=== PATIENT | male | born 1995 | race Caucasian/White ===

== ENCOUNTER 2016-06-12 19:47 | Emergency (ER) | payer BC, OTHER ==
[~2016-06-12] VITALS: Ht 185.4 cm; Wt 99.0 kg
[~2016-06-12 19:47] MED LIST: AMOX875 PO; ANTISOL30 EACH EAR
[2016-06-12 19:49] VITALS: BP 137/65; PULSE 70; RESP 16; TEMP 98.7; O2SAT 100
--- NOTE | 2016-06-12 20:02 | PD ---
Physical Exam Time Seen by Provider: 19:56 Narrative 20yo M w c/o thinking he's having seizures for the past few months. C/o shakey hands, mind going blank, not being able to speak during events. Happening 2-8 times per day. Lip smacking at night. Was awake, but unresponsive for about 1 minute after waking up yesterday; was completely pale and confused. Does not recall events after they occur. Reports ZAPIEN yesterday before event. Denies vomiting. Hx of hitting head about 3 months ago w/o LOC, but states he hit his head really hard. VS reviewed. Patient seen in triage. Awaiting bed placement. Data Data Last Documented VS Vital Signs Date Time Temp Pulse Resp B/P Pulse Ox O2 Delivery O2 Flow Rate FiO2 06/12/16 19:49 98.7 70 16 137/65 100 Room Air MDM Supervised Visit with OLIVER: Mindy Agosto June 12, 2016 20:02
--- NOTE | 2016-06-12 22:29 | PD ---
HPI Chief Complaint: Medical Clearance Time Seen by Provider: 22:11 Travel History International Travel<30 days: No Contact w/Intl Traveler<30days: No Traveled to known affect area: No History of Present Illness HPI 20-year-old male here with girlfriend for evaluation of possible seizures. 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 He denies losing consciousness at that time. Since then he has been having episodes of staring off into the distance. Girlfriend tells me that he had an episode last night where his face became pale, he complained of a headache, proceeded to stay off into the distance, and had left upper extremity shaking. This lasted for about 15-20 seconds. No history of seizure disorder. No family history of seizures. No fevers or recent illness. No paresthesias or motor deficits. He drinks alcohol occasionally. No illicit drug use. PFSH Past Medical History Diminished Hearing: No Social History Alcohol Use: No Tobacco Use: No Substance Use: No Allergies-Medications (Allergen,Severity, Reaction): Coded Allergies: No Known Allergies (Unverified , 06/12/16) Reported Meds & Prescriptions Reported Meds & Active Scripts Active No Active Prescriptions or Reported Medications Review of Systems Except as stated in HPI: all other systems reviewed are Neg Physical Exam Narrative GENERAL: Well-developed, well-nourished, awake, alert, no acute distress. SKIN: Focused skin assessment warm/dry. No rash. No pallor. HEAD: Atraumatic. Normocephalic. EYES: Pupils equal, round, 3 mm, reactive to light. EOMI. No scleral icterus. No injection or drainage. ENT: Mucous membranes pink and moist. NECK: Trachea midline. No JVD. CARDIOVASCULAR: Regular rate and rhythm. RESPIRATORY: No accessory muscle use. Clear to auscultation. Breath sounds equal bilaterally. GASTROINTESTINAL: Abdomen soft, non-tender, nondistended. MUSCULOSKELETAL: No obvious deformities. No clubbing. No cyanosis. No edema. NEUROLOGICAL: Awake and alert. No obvious cranial nerve deficits. Motor grossly within normal limits. Normal speech. No focal deficits. PSYCHIATRIC: Appropriate mood and affect; insight and judgment normal. Data Data Last Documented VS Vital Signs Date Time Temp Pulse Resp B/P Pulse Ox O2 Delivery O2 Flow Rate FiO2 06/12/16 19:49 98.7 70 16 137/65 100 Room Air Orders Complete Blood Count With Diff (06/12/16 22:20) Drug Screen, Random Urine (06/12/16 22:20) Blood Glucose (06/12/16 22:20) Ecg Monitoring (06/12/16 22:20) Iv Access Insert/Monitor (06/12/16 22:20) Oximetry (06/12/16 22:20) Comprehensive Metabolic Panel (06/12/16 22:20) Sodium Chloride 0.9% Flush (Ns Flush) (06/12/16 22:30) Urinalysis - C+S If Indicated (06/12/16 22:20) Ct Brain W/O Iv Contrast(Rout) (06/12/16 ) Labs Laboratory Tests Test 06/12/16 06/12/16 22:40 23:14 White Blood Count 7.2 TH/MM3 Red Blood Count 4.97 MIL/MM3 Hemoglobin 11.8 GM/DL Hematocrit 37.6 % Mean Corpuscular Volume 75.7 FL Mean Corpuscular Hemoglobin 23.8 PG Mean Corpuscular Hemoglobin 31.5 % Concent Red Cell Distribution Width 16.3 % Platelet Count 210 TH/MM3 Mean Platelet Volume 10.2 FL Neutrophils (%) (Auto) 51.4 % Lymphocytes (%) (Auto) 34.9 % Monocytes (%) (Auto) 12.3 % Eosinophils (%) (Auto) 0.5 % Basophils (%) (Auto) 0.9 % Neutrophils # (Auto) 3.7 TH/MM3 Lymphocytes # (Auto) 2.5 TH/MM3 Monocytes # (Auto) 0.9 TH/MM3 Eosinophils # (Auto) 0.0 TH/MM3 Basophils # (Auto) 0.1 TH/MM3 CBC Comment AUTO DIFF Sodium Level 139 MEQ/L Potassium Level 4.0 MEQ/L Chloride Level 104 MEQ/L Carbon Dioxide Level 27.0 MEQ/L Anion Gap 8 MEQ/L Blood Urea Nitrogen 14 MG/DL Creatinine 1.01 MG/DL Estimat Glomerular Filtration 92 ML/MIN Rate Random Glucose 84 MG/DL Calcium Level 8.7 MG/DL Total Bilirubin 0.4 MG/DL Aspartate Amino Transf 22 U/L (AST/SGOT) Alanine Aminotransferase 28 U/L (ALT/SGPT) Alkaline Phosphatase 60 U/L Total Protein 8.3 GM/DL Albumin 4.3 GM/DL Urine Color LIGHT-YELLOW Urine Turbidity CLEAR Urine pH 5.5 Urine Specific [place] 1.005 Urine Protein NEG mg/dL Urine Glucose (UA) NEG mg/dL Urine Ketones NEG mg/dL Urine Occult Blood NEG Urine Nitrite NEG Urine Bilirubin NEG Urine Urobilinogen LESS THAN 2.0 MG/DL Urine Leukocyte Esterase NEG Urine Mucus FEW /lpf Microscopic Urinalysis Comment CULT NOT INDICATED Urine Opiates Screen NEG Urine Barbiturates Screen NEG Urine Amphetamines Screen NEG Urine Benzodiazepines Screen NEG Urine Cocaine Screen NEG Urine Cannabinoids Screen NEG MDM Medical Decision Making Medical Screen Exam Complete: Yes Emergency Medical Condition: Yes Differential Diagnosis Seizure, Absence Seizures, Intracranial Abnormality, Metabolic Abnormality Narrative Course Vital signs show heart rate 70, blood pressure 137/65, pulse ox 100% on room air , oral temp of 98.7F. CBC is remarkable for hemoglobin 11.8, hematocrit 37.6, MCV 75.7. The patient has been told that he is slightly anemic in the past. CMP is unremarkable. Urine drug screen is negative for all drugs tested. UA is unremarkable. CT head: Normal exam. Case discussed with on-call neurologist Dr. Marte shortly after the patient arrived to the emergency department. He agrees with above workup, and states that if workup was negative, that this is not an acute issue, and the patient can follow-up in his office as an outpatient. The patient and the patient's girlfriend were made aware of all findings. He is resting comfortably. He is awake, alert, and oriented. He is stable for discharge home with outpatient follow-up. I told him he should not be driving or operating heavy machinery until cleared by neurology. He verbalizes understanding with this. Diagnosis Primary Impression: Seizure-like activity Referrals: Reginaldo Marte MD 3 days Primary Care Physician 3 days Additional Instructions: Follow-up with your primary care physician this week as scheduled. Follow-up with neurologist Dr. Marte or a neurologist of your choice this week. Return to the emergency department for worsening symptoms or any other concerns. Scripts No Active Prescriptions or Reported Meds Disposition: 01 DISCHARGE HOME Condition: Stable Isauro Melendez MD June 12, 2016 22:29
[2016-06-12] MEDS ORDERED: SODIUM CHLORIDE 0.9% FLUSH 10 ML FLUSH IVF PRN (22:30)
[2016-06-12 22:45] LABS: AUTOMATED NEUTROPHIL # 3.7 TH/MM3 (1.8-7.7); BASOPHIL # 0.1 TH/MM3 (0-0.2); BASOPHIL % 0.9 % (0.0-2.0); EOSINOPHIL % 0.5 % (0.0-4.0); HEMATOCRIT 37.6 % (39.0-51.0); LYMPH % 34.9 % (9.0-44.0); LYMPHOCYTE # 2.5 TH/MM3 (1.0-4.8); MEAN CELL VOLUME 75.7 FL (80.0-100.0); MEAN CORPUSCULAR HEMOGLOBIN 23.8 PG (27.0-34.0); MEAN CORPUSCULAR HGB CONC 31.5 % (32.0-36.0); MONO % 12.3 % (0.0-8.0); NEUT % 51.4 % (16.0-70.0); PLATELET COUNT 210 TH/MM3 (150-450); RED BLOOD COUNT 4.97 MIL/MM3 (4.50-5.90); RED CELL DISTRIBUTION WIDTH 16.3 % (11.6-17.2); WHITE BLOOD COUNT 7.2 TH/MM3 (4.0-11.0)
[2016-06-12 22:51] LABS: HEMO FLAGS AUTO DIFF
--- NOTE | 2016-06-12 23:05 | RADRPT ---
EXAM DATE/TIME: 06/12/2016 22:50 [facility] COMPARISON: No previous studies available for comparison. INDICATIONS : Altered mental status. Possible seizures. RADIATION DOSE: 39.52 CTDIvol (mGy) MEDICAL HISTORY : None SURGICAL HISTORY : None. ENCOUNTER: Initial ACUITY: 3 days PAIN SCALE: 0/10 LOCATION: cranial TECHNIQUE: Multiple contiguous axial images were obtained of the head. Using automated exposure control and adj ustment of the mA and/or kV according to patient size, radiation dose was kept as low as reasonably a chievable to obtain optimal diagnostic quality images. FINDINGS: CEREBRUM: The ventricles are normal for age. No evidence of midline shift, mass lesion, hemorrhage or acute in farction. No extra-axial fluid collections are seen. POSTERIOR FOSSA: The cerebellum and brainstem are intact. The 4th ventricle is midline. The cerebellopontine angle i s unremarkable. EXTRACRANIAL: The visualized portion of the orbits is intact. SKULL: The calvaria is intact. No evidence of skull fracture. CONCLUSION: Normal examination. Robb Damico Jr., MD on June 12, 2016 at 23:03 Board Certified Radiologist. This report was verified electronically.
[2016-06-12 23:18] LABS: ANION GAP 8 MEQ/L (5-15); AST (GOT) 22 U/L (15-37); BLOOD UREA NITROGEN 14 MG/DL (7-18); CHLORIDE 104 MEQ/L (98-107); GLOMERULAR FILTRATION RATE 92 ML/MIN (>89); SODIUM (NA) 139 MEQ/L (136-145)
[2016-06-12 23:22] LABS: ALKALINE PHOSPHATASE 60 U/L (45-117); ALT (GPT) 28 U/L (12-78); TOTAL BILIRUBIN ADULT 0.4 MG/DL (0.2-1.0)
[2016-06-12 23:22] LABS: BLOOD, URINE NEG (NEG); GLUCOSE,URINE NEG (NEG); KETONE, URINE NEG (NEG); MUCUS URINE FEW /lpf (OCC); NITRITE,URINE NEG (NEG); PH, URINE 5.5 (5.0-8.5); URINE COLOR LIGHT-YELLOW (YELLW/STRAW)
[2016-06-12 23:23] LABS: COMMENT (UR) CULT NOT INDICATED; CULTURE IF INDICATED CULT NOT INDICATED
[2016-06-12 23:28] LABS: AMPHETAMINE, URINE NEG (NEG); BARBITURATES, URINE NEG (NEG); COCAINE, URINE NEG (NEG)
[2016-06-12 23:49] LABS: SCAN/DIFF AUTO DIFF CONFIRMED
== END 2016-06-13 01:00 | disposition home or self-care (01) ==
LOC: NEPD 19:47
DX: R56.9 Unspecified convulsions (principal); R51 Headache
CPT/HCPCS: 70450; 80053; 80307; 81001; 85025

== ENCOUNTER 2016-06-15 13:06 | Emergency (ER) | payer BC ==
[~2016-06-15] VITALS: Ht 188 cm; Wt 118.0 kg
[2016-06-15 13:08] VITALS: BP 133/60; PULSE 74; RESP 20; TEMP 98.7; O2SAT 98
--- NOTE | 2016-06-15 13:22 | PD ---
Physical Exam Date Seen by Provider: June 15, 2016 Time Seen by Provider: 13:15 Narrative Pt states he needs to get "checked out" because he's having seizures. Pt was seen Sunday and discharged. He states that they are becoming more frequent and states he's had hundred's. He states his body "tunes out". He is aware of his surroundings and he can make himself walk it out. His girlfriend states he does a lip smacking thing and appears pale and disoriented, he stares blankly. No incontinence. When these episodes happen he is standing up, he never "falls out ". VSS, awaiting bed placement. Data Data Last Documented VS Vital Signs Date Time Temp Pulse Resp B/P Pulse Ox O2 Delivery O2 Flow Rate FiO2 06/15/16 13:08 98.7 74 20 133/60 98 Room Air MDM Supervised Visit with OLIVER: No Scripts No Active Prescriptions or Reported Meds Ranjana Foote June 15, 2016 13:22
--- NOTE | 2016-06-15 14:39 | PD ---
HPI Chief Complaint: Seizure Time Seen by Provider: 14:38 Travel History International Travel<30 days: No Contact w/Intl Traveler<30days: No Traveled to known affect area: No History of Present Illness HPI 20 year old male presents to the ED for evaluation of a 3 month history of "spacing out." Episodes happen randomly, resolve after 15-20 seconds. Patient describes them as "I just go blank and then I snap out of it." The patients girlfriend is at bedside and states that she has witnessed the patients episodes. She states that he does not lose postural tone, sometimes smacks his lips, occasionally has tremors of bilateral hands. Patient states that he hit his head on the grab bar of a pickup truck approximately 3 months ago. He did not lose consciousness at the time. He is unsure if symptoms began prior to this event. He denies fever, chills, chest pain, palpitations, abdominal pain, nausea, vomiting, dysuria, numbness, tingling, weakness, limitations to range of motion of the extremities. Patient was evaluated here on 06/13, had a CT at the time and was referred to Dr. Marte on an outpatient basis. The patient's girlfriend states that she has to drive the patient to work every day and "can' t wait" until July 13, when the patient has an appointment. PFSH Past Medical History Diminished Hearing: No Seizures: Yes Past Surgical History Abdominal Surgery: Yes (gastric bypass) Social History Alcohol Use: Yes Tobacco Use: Yes Substance Use: No Allergies-Medications (Allergen,Severity, Reaction): Coded Allergies: No Known Allergies (Unverified , 06/15/16) Reported Meds & Prescriptions Reported Meds & Active Scripts Active Keppra (Levetiracetam) 500 Mg Tab 500 Mg PO BID Review of Systems Except as stated in HPI: all other systems reviewed are Neg Physical Exam Narrative GENERAL: Well-nourished, well-developed pleasant white male in no acute distress. SKIN: Focused skin assessment warm/dry. No rashes. HEAD: Normocephalic. EYES: No scleral icterus. No injection or drainage. NECK: Supple, trachea midline. No JVD or lymphadenopathy. CARDIOVASCULAR: Regular rate and rhythm without murmurs, gallops, or rubs. 2+ DP and radial pulses bilaterally. RESPIRATORY: Breath sounds clear and equal bilaterally. No accessory muscle use. GASTROINTESTINAL: Abdomen soft, non-tender, nondistended. Active bowel sounds. MUSCULOSKELETAL: No cyanosis, or edema. Patient is ambulatory and moves extremities spontaneously. NEUROLOGICAL: Awake and alert. Cranial nerves II through XII intact. Motor and sensory grossly within normal limits. Five out of 5 muscle strength in all muscle groups. Normal speech. No difficulties with finger to nose testing. No pronator drift. BACK: Nontender without obvious deformity. No CVA tenderness. Data Data Last Documented VS Vital Signs Date Time Temp Pulse Resp B/P Pulse Ox O2 Delivery O2 Flow Rate FiO2 06/15/16 16:00 57 17 125/58 99 Room Air 06/15/16 13:08 98.7 Orders Complete Blood Count With Diff (06/15/16 14:59) Basic Metabolic Panel (Bmp) (06/15/16 14:59) Urinalysis - C+S If Indicated (06/15/16 14:59) Drug Screen, Random Urine (06/15/16 14:59) Levetiracetam 1000 Mg Inj (Keppra 1000 M (06/15/16 15:15) Labs Laboratory Tests Test 06/15/16 15:00 White Blood Count 5.3 TH/MM3 Red Blood Count 4.78 MIL/MM3 Hemoglobin 11.3 GM/DL Hematocrit 36.2 % Mean Corpuscular Volume 75.7 FL Mean Corpuscular Hemoglobin 23.7 PG Mean Corpuscular Hemoglobin 31.3 % Concent Red Cell Distribution Width 16.7 % Platelet Count 200 TH/MM3 Mean Platelet Volume 10.5 FL Neutrophils (%) (Auto) 53.8 % Lymphocytes (%) (Auto) 33.7 % Monocytes (%) (Auto) 11.1 % Eosinophils (%) (Auto) 0.7 % Basophils (%) (Auto) 0.7 % Neutrophils # (Auto) 2.9 TH/MM3 Lymphocytes # (Auto) 1.8 TH/MM3 Monocytes # (Auto) 0.6 TH/MM3 Eosinophils # (Auto) 0.0 TH/MM3 Basophils # (Auto) 0.0 TH/MM3 CBC Comment AUTO DIFF Differential Comment AUTO DIFF CONFIRMED Platelet Estimate NORMAL Platelet Morphology Comment ENLARGED Urine Color YELLOW Urine Turbidity CLEAR Urine pH 5.5 Urine Specific [place] 1.010 Urine Protein NEG mg/dL Urine Glucose (UA) NEG mg/dL Urine Ketones NEG mg/dL Urine Occult Blood NEG Urine Nitrite NEG Urine Bilirubin NEG Urine Urobilinogen LESS THAN 2.0 MG/DL Urine Leukocyte Esterase NEG Urine WBC LESS THAN 1 /hpf Microscopic Urinalysis Comment CULT NOT INDICATED Sodium Level 139 MEQ/L Potassium Level 4.0 MEQ/L Chloride Level 103 MEQ/L Carbon Dioxide Level 29.5 MEQ/L Anion Gap 7 MEQ/L Blood Urea Nitrogen 14 MG/DL Creatinine 0.87 MG/DL Estimat Glomerular Filtration 110 ML/MIN Rate Random Glucose 84 MG/DL Calcium Level 8.8 MG/DL Urine Opiates Screen NEG Urine Barbiturates Screen NEG Urine Amphetamines Screen NEG Urine Benzodiazepines Screen NEG Urine Cocaine Screen NEG Urine Cannabinoids Screen NEG MDM Medical Decision Making Medical Screen Exam Complete: Yes Emergency Medical Condition: Yes Medical Record Reviewed: Yes Differential Diagnosis Absence seizure versus psychogenic seizure versus electrolyte abnormality versus Narrative Course 20 year old male presents to the ED for evaluation of a 3 month history of "spacing out." Episodes happen randomly, resolve after 15-20 seconds. Patient describes them as "I just go blank and then I snap out of it." The patients girlfriend is at bedside and states that she has witnessed the patients episodes. She states that he does not lose postural tone, sometimes smacks his lips, occasionally has tremors of bilateral hands. Patient states that he hit his head on the grab bar of a pickup truck approximately 3 months ago, denies LOC, is unsure if symptoms began prior to this event. On presentation he denies fever, chills, chest pain, palpitations, abdominal pain, nausea, vomiting , dysuria, numbness, tingling, weakness, limitations to range of motion of the extremities. Patient was evaluated here on 06/13, had a CT at the time and was referred to Dr. Marte on an outpatient basis. The patient's girlfriend states that she has to drive the patient to work every day and "can't wait" until July 13, when the patient has an appointment. Vitals reviewed. Physical exam reveals no focal neural deficit. CBC with Hgb 11.3, similar to previous. Lab work otherwise unremarkable. I reviewed the patient's medical record. Discussed case with Dr. Hughes who recommends initiating Keppra. Patient was administered 1 g IV in the ED, prescribed 500 mg twice a day 30 days. He is instructed take medication as prescribed, continue to avoid driving or operating heavy equipment, follow-up with the neurologist as planned. Patient and his girlfriend indicated understanding of instructions and are agreeable to the care plan. Patient is stable and discharged home. Diagnosis Primary Impression: Seizure-like activity Referrals: Reginaldo Marte MD Patient Instructions: General Instructions, New-Onset Seizure in Adults (ED) Additional Instructions: Rest, hydrate. Begin Keppra 500 mg twice a day tomorrow. Follow-up with Dr. Marte as discussed. No driving or using heavy machinery until cleared by neurology. Return to the ED for any urgent or emergent medical condition. Med/Other Pt SpecificInfo: Prescription(s) given Scripts Levetiracetam (Keppra)500 Mg [id number] Mg PO BID #60 TAB Ref 0 Prov:Lashanda Hughes MD 06/15/16 Disposition: 01 DISCHARGE HOME Condition: Stable Joanna Victor June 15, 2016 14:39
[2016-06-15] MEDS ORDERED: levETIRAcetam 1000 MG INJ 100 ML IV ONE (15:15)
[2016-06-15 15:40] LABS: BLOOD, URINE NEG (NEG); GLUCOSE,URINE NEG (NEG); KETONE, URINE NEG (NEG); NITRITE,URINE NEG (NEG); PH, URINE 5.5 (5.0-8.5); URINE COLOR YELLOW (YELLW/STRAW)
[2016-06-15 15:42] LABS: AUTOMATED NEUTROPHIL # 2.9 TH/MM3 (1.8-7.7); BASOPHIL % 0.7 % (0.0-2.0); COMMENT (UR) CULT NOT INDICATED; CULTURE IF INDICATED CULT NOT INDICATED; EOSINOPHIL % 0.7 % (0.0-4.0); HEMATOCRIT 36.2 % (39.0-51.0); LYMPH % 33.7 % (9.0-44.0); LYMPHOCYTE # 1.8 TH/MM3 (1.0-4.8); MEAN CELL VOLUME 75.7 FL (80.0-100.0); MEAN CORPUSCULAR HEMOGLOBIN 23.7 PG (27.0-34.0); MEAN CORPUSCULAR HGB CONC 31.3 % (32.0-36.0); MONO % 11.1 % (0.0-8.0); NEUT % 53.8 % (16.0-70.0); PLATELET COUNT 200 TH/MM3 (150-450); RED BLOOD COUNT 4.78 MIL/MM3 (4.50-5.90); RED CELL DISTRIBUTION WIDTH 16.7 % (11.6-17.2); WHITE BLOOD COUNT 5.3 TH/MM3 (4.0-11.0)
[2016-06-15 15:45] LABS: HEMO FLAGS AUTO DIFF
[2016-06-15 15:49] LABS: AMPHETAMINE, URINE NEG (NEG); BARBITURATES, URINE NEG (NEG); COCAINE, URINE NEG (NEG)
[2016-06-15 16:00] VITALS: BP 125/58; PULSE 57; RESP 17; O2SAT 99
[2016-06-15 16:06] LABS: BICARBONATE 29.5 MEQ/L (21.0-32.0)
[2016-06-15] MEDS ORDERED: LEVE500 PO (16:12)
[2016-06-15 16:34] LABS: PLATELET ESTIMATE SMEAR NORMAL (NORMAL); PLATELET MORPHOLOGY ENLARGED (NORMAL); SCAN/DIFF AUTO DIFF CONFIRMED
--- NOTE | 2016-06-15 17:13 | PD ---
Data Data Last Documented VS Vital Signs Date Time Temp Pulse Resp B/P Pulse Ox O2 Delivery O2 Flow Rate FiO2 06/15/16 16:00 57 17 125/58 99 Room Air 06/15/16 13:08 98.7 Orders Complete Blood Count With Diff (06/15/16 14:59) Basic Metabolic Panel (Bmp) (06/15/16 14:59) Urinalysis - C+S If Indicated (06/15/16 14:59) Drug Screen, Random Urine (06/15/16 14:59) Levetiracetam 1000 Mg Inj (Keppra 1000 M (06/15/16 15:15) Labs Laboratory Tests Test 06/15/16 15:00 White Blood Count 5.3 TH/MM3 Red Blood Count 4.78 MIL/MM3 Hemoglobin 11.3 GM/DL Hematocrit 36.2 % Mean Corpuscular Volume 75.7 FL Mean Corpuscular Hemoglobin 23.7 PG Mean Corpuscular Hemoglobin 31.3 % Concent Red Cell Distribution Width 16.7 % Platelet Count 200 TH/MM3 Mean Platelet Volume 10.5 FL Neutrophils (%) (Auto) 53.8 % Lymphocytes (%) (Auto) 33.7 % Monocytes (%) (Auto) 11.1 % Eosinophils (%) (Auto) 0.7 % Basophils (%) (Auto) 0.7 % Neutrophils # (Auto) 2.9 TH/MM3 Lymphocytes # (Auto) 1.8 TH/MM3 Monocytes # (Auto) 0.6 TH/MM3 Eosinophils # (Auto) 0.0 TH/MM3 Basophils # (Auto) 0.0 TH/MM3 CBC Comment AUTO DIFF Differential Comment AUTO DIFF CONFIRMED Platelet Estimate NORMAL Platelet Morphology Comment ENLARGED Urine Color YELLOW Urine Turbidity CLEAR Urine pH 5.5 Urine Specific [place] 1.010 Urine Protein NEG mg/dL Urine Glucose (UA) NEG mg/dL Urine Ketones NEG mg/dL Urine Occult Blood NEG Urine Nitrite NEG Urine Bilirubin NEG Urine Urobilinogen LESS THAN 2.0 MG/DL Urine Leukocyte Esterase NEG Urine WBC LESS THAN 1 /hpf Microscopic Urinalysis Comment CULT NOT INDICATED Sodium Level 139 MEQ/L Potassium Level 4.0 MEQ/L Chloride Level 103 MEQ/L Carbon Dioxide Level 29.5 MEQ/L Anion Gap 7 MEQ/L Blood Urea Nitrogen 14 MG/DL Creatinine 0.87 MG/DL Estimat Glomerular Filtration 110 ML/MIN Rate Random Glucose 84 MG/DL Calcium Level 8.8 MG/DL Urine Opiates Screen NEG Urine Barbiturates Screen NEG Urine Amphetamines Screen NEG Urine Benzodiazepines Screen NEG Urine Cocaine Screen NEG Urine Cannabinoids Screen NEG MDM Supervised Visit with OLIVER: Yes Narrative Course The history, exam, and medical decision-making in the associated midlevel provider note were completed with my assistance. I reviewed and agree with the findings presented. I attest that I had a [id number] encounter with the patient on the same day, and personally performed and documented my assessment and findings in the medical record. *My assessment and Findings: This is a 20-year-old male who presents to the emergency department having increasing episodes of staring off into space concerning for Seizures. He Was Seen Here in the Emergency Department 3 Days Ago and Had Labs and a CT Scan Which Were Reassuring and Referred to Neurology As an Outpatient. He Has No Appointment Scheduled but His Girlfriend Was Concerned As His Symptoms Are Increasing. He Has a Normal Neurologic Exam and Reassuring Blood Work. I Think It's Reasonable to Try the Patient on Keppra Empirically until He Follows up with His Neurologist. I Advised Him Again Not to Drive until He's Been Completely Evaluated by neurology. Diagnosis Primary Impression: Seizure-like activity Referrals: Reginaldo Marte MD Patient Instructions: General Instructions, Levetiracetam (By mouth), New- Onset Seizure in Adults (ED) Departure Forms: Tests/Procedures Additional Instruction: Rest, hydrate. Begin Keppra 500 mg twice a day tomorrow. Follow-up with Dr. Marte as discussed. No driving or using heavy machinery until cleared by neurology. Return to the ED for any urgent or emergent medical condition. Scripts Levetiracetam (Keppra)500 Mg [id number] Mg PO BID #60 TAB Ref 0 Prov:Lashanda Hughes MD 06/15/16 Disposition: 01 DISCHARGE HOME Condition: Stable Lashanda Hughes MD June 15, 2016 17:13
== END 2016-06-15 17:26 | disposition home or self-care (01) ==
LOC: NEPC 13:06
DX: R56.9 Unspecified convulsions (principal); R25.1 Tremor, unspecified; Z72.0 Tobacco use
CPT/HCPCS: 80048; 80307; 81001; 85025; 96365; 99284; J1953

== ENCOUNTER 2016-10-14 15:45 | Emergency (ER) | payer BC ==
[~2016-10-14] VITALS: Ht 190.5 cm; Wt 120.0 kg
[~2016-10-14 15:45] MED LIST changes: -AMOX875 PO; -ANTISOL30 EACH EAR; +LEVE500 PO
[2016-10-14 15:56] VITALS: BP 139/63; PULSE 83; RESP 23; TEMP 98.7; O2SAT 99
[2016-10-14 16:10] VITALS: BP 139/63; PULSE 72; RESP 20; O2SAT 100
[2016-10-14] MEDS ORDERED: TETANUS/DIPHTHERIA TOXOID ADULT 0.5 ML VIAL IM ONE (16:15)
[2016-10-14] MEDS ORDERED: SODIUM CHLORIDE 0.9% FLUSH 10 ML FLUSH IVF PRN (16:15)
--- NOTE | 2016-10-14 16:18 | PD ---
HPI Chief Complaint: Seizure Time Seen by Provider: 16:02 Travel History International Travel<30 days: No Contact w/Intl Traveler<30days: No Traveled to known affect area: No History of Present Illness HPI Patient is a 21-year-old male presenting to emergency evaluation after having seizure-like activity at home. Patient states that he got up from the couch and walked to the bedroom and the next thing he remembers is when EMS was talking to him. Friend is at bedside and states that he appeared to have seizure-like activity for 2-3 minutes. She states that he was foaming at the mouth and shaking. Patient hit his head on a bookshelf, he doesn't remember doing this. He states that he was taken off of Keppra by his doctor 2 weeks ago. He is currently followed by Dr. Ariel Harrell. He states while he was on the Keppra he was having seizures every few days. He denies any illicit drug use, he states he drank alcohol last night. He has no other complaints at this time. No headache no dizziness no chest pain or shortness of breath or nausea. PFSH Past Medical History Anemia: Yes Diminished Hearing: No Seizures: Yes Tetanus Vaccination: Unknown ?: Not Past Surgical History Abdominal Surgery: Yes (gastric bypass) Social History Alcohol Use: Yes (weekly) Tobacco Use: No Substance Use: No Allergies-Medications (Allergen,Severity, Reaction): Coded Allergies: No Known Allergies (Unverified , 10/14/16) Reported Meds & Prescriptions Reported Meds & Active Scripts Active Keppra (Levetiracetam) 500 Mg Tab 500 Mg PO BID Review of Systems Except as stated in HPI: all other systems reviewed are Neg Skin: Positive Other (laceration) Neurologic: Positive: Seizures Physical Exam Narrative GENERAL: Well-developed, well-nourished, alert male. Resting in no acute distress. SKIN: Warm and dry. 2 cm laceration to the midforehead. HEAD: Atraumatic. Normocephalic. EYES: Pupils equal and round. No scleral icterus. No injection or drainage. ENT: No nasal bleeding or discharge. Mucous membranes pink and moist. NECK: Trachea midline. No JVD. CARDIOVASCULAR: Regular rate and rhythm. RESPIRATORY: No accessory muscle use. Clear to auscultation. Breath sounds equal bilaterally. GASTROINTESTINAL: Abdomen soft, non-tender, nondistended. Hepatic and splenic margins not palpable. MUSCULOSKELETAL: Extremities without clubbing, cyanosis, or edema. No obvious deformities. Patient ambulatory emergency department. NEUROLOGICAL: Awake and alert. No obvious cranial nerve deficits. Motor grossly within normal limits. Five out of 5 muscle strength in the arms and legs. Normal speech. PSYCHIATRIC: Appropriate mood and affect; insight and judgment normal. Data Data Last Documented VS Vital Signs Date Time Temp Pulse Resp B/P (MAP) Pulse Ox O2 Delivery O2 Flow Rate FiO2 10/14/16 16:10 72 20 139/63 (88) 100 Room Air 10/14/16 15:56 98.7 Orders Orders Complete Blood Count With Diff (10/14/16 16:04) Electrocardiogram (10/14/16 ) Ecg Monitoring (10/14/16 16:04) Iv Access Insert/Monitor (10/14/16 16:04) Oximetry (10/14/16 16:04) Comprehensive Metabolic Panel (10/14/16 16:04) Sodium Chloride 0.9% Flush (Ns Flush) (10/14/16 16:15) Urinalysis - C+S If Indicated (10/14/16 16:04) Tetanus/Diphtheria Tox Adult (Tetanus/Di (10/14/16 16:15) Labs Laboratory Tests Test 10/14/16 16:33 White Blood Count 5.2 TH/MM3 Red Blood Count 4.54 MIL/MM3 Hemoglobin 12.8 GM/DL Hematocrit 39.0 % Mean Corpuscular Volume 85.7 FL Mean Corpuscular Hemoglobin 28.3 PG Mean Corpuscular Hemoglobin Concent 33.0 % Red Cell Distribution Width 20.1 % Platelet Count 160 TH/MM3 Mean Platelet Volume 10.1 FL Neutrophils (%) (Auto) 73.9 % Lymphocytes (%) (Auto) 17.6 % Monocytes (%) (Auto) 7.8 % Eosinophils (%) (Auto) 0.4 % Basophils (%) (Auto) 0.3 % Neutrophils # (Auto) 3.9 TH/MM3 Lymphocytes # (Auto) 0.9 TH/MM3 Monocytes # (Auto) 0.4 TH/MM3 Eosinophils # (Auto) 0.0 TH/MM3 Basophils # (Auto) 0.0 TH/MM3 CBC Comment DIFF FINAL Differential Comment Urine Color LIGHT-YELLOW Urine Turbidity CLEAR Urine pH 5.0 Urine Specific [place] 1.008 Urine Protein NEG mg/dL Urine Glucose (UA) NEG mg/dL Urine Ketones NEG mg/dL Urine Occult Blood NEG Urine Nitrite NEG Urine Bilirubin NEG Urine Urobilinogen LESS THAN 2.0 MG/DL Urine Leukocyte Esterase NEG Urine RBC LESS THAN 1 /hpf Urine WBC LESS THAN 1 /hpf Urine Bacteria RARE /hpf Urine Mucus FEW /lpf Microscopic Urinalysis Comment CULT NOT INDICATED Blood Urea Nitrogen 13 MG/DL Creatinine 0.81 MG/DL Random Glucose 98 MG/DL Total Protein 6.8 GM/DL Albumin 3.8 GM/DL Calcium Level 8.5 MG/DL Alkaline Phosphatase 46 U/L Aspartate Amino Transf (AST/SGOT) 21 U/L Alanine Aminotransferase (ALT/SGPT) 37 U/L Total Bilirubin 0.5 MG/DL Sodium Level 139 MEQ/L Potassium Level 3.9 MEQ/L Chloride Level 106 MEQ/L Carbon Dioxide Level 25.2 MEQ/L Anion Gap 8 MEQ/L Estimat Glomerular Filtration Rate 118 ML/MIN MDM Medical Decision Making Medical Screen Exam Complete: Yes Emergency Medical Condition: Yes Medical Record Reviewed: Yes Interpretation(s) Vital Signs Date Time Temp Pulse Resp B/P (MAP) Pulse Ox O2 Delivery O2 Flow Rate FiO2 10/14/16 16:10 72 20 139/63 (88) 100 Room Air 10/14/16 15:56 98.7 83 23 139/63 (88) 99 Differential Diagnosis Seizure versus pseudoseizure versus syncope versus electrolyte abnormality versus anemia versus other Narrative Course Patient is a 21-year-old male presenting for evaluation after experiencing seizure-like activity for 2-3 minutes. Patient's vital signs are stable, he is neurologically intact, ambulatory emergency department. Patient does not appear postictal on arrival. He is alert and ambulating in the room. Patient was not incontinent of stool or urine. Labs ordered and pending. Labs reviewed, no acute abnormalities identified. EKG shows sinus rhythm with sinus arrhythmia, rate of 71. This was reviewed by my attending physician. Patient was observed in the emergency department, he remains neurologically intact, no focal deficits noted. No further seizure activity. Please see procedure report for laceration repair. Patient was encouraged to follow-up with his neurologist, he was encouraged to avoid alcohol and/or drugs if applicable. Was advised to return to emergency department for any new or worsening symptoms. He was advised not to drive or operate machinery until cleared by his neurologist. He verbalized understanding of these instructions. Patient is stable for discharge. Procedures Procedure Narrative LACERATION LOCATION: Mid forehead in between eyebrows LENGTH: 2 cm NUMBER OF STITCHES/GEOVANNY: 5 stitches REPAIR: The area of the laceration was prepped with Betadine and sterilely draped. The laceration was infiltrated with 1% lidocaine. The wound was copiously irrigated and explored without evidence of foreign body, tendon injury or neurovascular injury. The wound was closed using 5-0 Ethilon. This was a 1 layer repair. A sterile dressing was applied. The patient was advised to keep the dressing clean and dry. Patient tolerated the procedure well. Diagnosis Primary Impression: Seizure-like activity Additional Impression: Laceration of head Qualified Codes: S01.91XA - Laceration without foreign body of unspecified part of head, initial encounter Referrals: Neurologist 1 week Primary Care Physician 1 week Patient Instructions: Care For Your Stitches (ED), General Instructions, Laceration (ED), Recurrent Seizures in Adults (DC) Additional Instructions: Follow-up with Dr. Harrell Follow-up with your primary doctor Return to emergency department for any new or worsening symptoms Do not drive until cleared by neurologist Med/Other Pt SpecificInfo: No Change to Meds Disposition: 01 DISCHARGE HOME Condition: Stable Ranjana Foote Hilary JUARES Oct 14, 2016 16:18
[2016-10-14 16:56] LABS: AUTOMATED NEUTROPHIL # 3.9 TH/MM3 (1.8-7.7); BASOPHIL % 0.3 % (0.0-2.0); EOSINOPHIL % 0.4 % (0.0-4.0); HEMO FLAGS DIFF FINAL; LYMPH % 17.6 % (9.0-44.0); LYMPHOCYTE # 0.9 TH/MM3 (1.0-4.8); MEAN CELL VOLUME 85.7 FL (80.0-100.0); MEAN CORPUSCULAR HEMOGLOBIN 28.3 PG (27.0-34.0); MONO % 7.8 % (0.0-8.0); NEUT % 73.9 % (16.0-70.0); PLATELET COUNT 160 TH/MM3 (150-450); RED BLOOD COUNT 4.54 MIL/MM3 (4.50-5.90); RED CELL DISTRIBUTION WIDTH 20.1 % (11.6-17.2); WHITE BLOOD COUNT 5.2 TH/MM3 (4.0-11.0)
[2016-10-14 17:00] LABS: BACTERIA, URINE RARE /hpf; BLOOD, URINE NEG (NEG); GLUCOSE,URINE NEG (NEG); KETONE, URINE NEG (NEG); MUCUS URINE FEW /lpf (OCC); NITRITE,URINE NEG (NEG); URINE COLOR LIGHT-YELLOW (YELLW/STRAW)
[2016-10-14 17:02] LABS: COMMENT (UR) CULT NOT INDICATED; CULTURE IF INDICATED CULT NOT INDICATED
[2016-10-14 17:08] LABS: ALT (GPT) 37 U/L (12-78)
[2016-10-14 17:11] LABS: ALKALINE PHOSPHATASE 46 U/L (45-117); TOTAL BILIRUBIN ADULT 0.5 MG/DL (0.2-1.0)
[2016-10-14 17:26] LABS: ANION GAP 8 MEQ/L (5-15); AST (GOT) 21 U/L (15-37); BICARBONATE 25.2 MEQ/L (21.0-32.0); BLOOD UREA NITROGEN 13 MG/DL (7-18); CHLORIDE 106 MEQ/L (98-107); GLOMERULAR FILTRATION RATE 118 ML/MIN (>89); POTASSIUM 3.9 MEQ/L (3.5-5.1); SODIUM (NA) 139 MEQ/L (136-145)
[2016-10-14] MEDS ORDERED: IBUPROFEN 800 MG TAB PO ONE (18:30)
--- NOTE | 2016-10-15 09:22 | EKG ---
Date Performed: 10/14/2016 Time Performed: 16:31:03 PTAGE: 21 years EKG: Sinus rhythm WITH SINUS ARRHYTHMIA MODERATE INTRAVENTRICULAR CONDUCTION DELAY BORDERLINE ECG NO PREVIOUS TRACING DOCTOR: [place] Roman Interpretating Date/Time 10/15/2016 09:21:24
== END 2016-10-14 18:58 | disposition home or self-care (01) ==
LOC: NEPC 15:45
DX: R56.9 Unspecified convulsions (principal); S01.81XA Laceration without foreign body of other part of head, initial encounter; I49.8 Other specified cardiac arrhythmias; D64.9 Anemia, unspecified; X58.XXXA Exposure to other specified factors, initial encounter; Z23 Encounter for immunization
CPT/HCPCS: 12011; 80053; 81001; 85025; 90471; 90714; 93005

== ENCOUNTER 2017-04-02 16:27 | Emergency (ER) | payer BC ==
[~2017-04-02] VITALS: Ht 190.5 cm; Wt 127.0 kg
[2017-04-02 16:40] VITALS: BP 140/61; PULSE 58; RESP 14; TEMP 98.1; O2SAT 98
[2017-04-02] MEDS ORDERED: [UNRECOGNIZED DRUG - CODE] (17:04)
[2017-04-02] MEDS ORDERED: OXCA150T PO (17:04)
[2017-04-02] MEDS ORDERED: MULT1TAB46 PO (17:06)
[2017-04-02] MEDS ORDERED: VITA250C3 PO (17:08)
[2017-04-02] MEDS ORDERED: iron PO (17:08)
--- NOTE | 2017-04-02 17:09 | PD ---
HPI Chief Complaint: Injury Time Seen by Provider: 16:53 Travel History International Travel<30 days: No Contact w/Intl Traveler<30days: No Traveled to known affect area: No History of Present Illness HPI 21-year-old male that presents to the ED for evaluation of pain to his left shoulder. Per patient he feels like it is "out of place". Per patient he had a seizure off barstool on Sunday. He was evaluated the emergency room had a CAT scan of blood work and all show okay. Per patient he was not evaluated for the shoulder and his been having pain since. Per patient he was seen at an outpatient area where he had x-rays that show possible dislocation. Per patient they did try to put it back in place but unsuccessfully told to come to the ER. He denies any other medical issues. No urinary or bowel movement issues. Pain to the shoulder only with movement. Not able to move it past 90 without severe pain. No prior injuries. No surgeries. Denies any seizures or injury since. He has a chronic history of seizures and takes medications for this. No other medical issues. No allergies to medication. Pain per patient is 7 out of 10 with movement of the shoulder. PFSH Past Medical History Anemia: Yes Diminished Hearing: No Seizures: Yes Past Surgical History Abdominal Surgery: Yes (gastric bypass) Social History Alcohol Use: Yes (weekly) Tobacco Use: No Substance Use: No Allergies-Medications (Allergen,Severity, Reaction): Coded Allergies: No Known Allergies (Unverified Adverse Reaction, Unknown, 04/02/17) Reported Meds & Prescriptions Reported Meds & Active Scripts Active Hydrocodone-Acetamin 5-325 mg (Hydrocodone/Acetaminophen) 5 Mg-325 Mg Tablet 1 Tab PO Q6HR PRN Diclofenac Sodium DR (Diclofenac Sodium) 75 Mg Tabdr 75 Mg PO BID PRN Reported [iron] 1 Tab PO DAILY Vitamin C (Ascorbic Acid) 250 Mg Chew 250 Mg PO DAILY Multi Vitamin Daily (Multiple Vitamin) 1 Tab Tab 1 Tab PO DAILY Oxcarbazepine 150 Mg Tab 150 Mg PO BID Review of Systems Except as stated in HPI: all other systems reviewed are Neg Physical Exam Narrative GENERAL: SKIN: Warm and dry. HEAD: Atraumatic. Normocephalic. EYES: Pupils equal and round. No scleral icterus. No injection or drainage. ENT: No nasal bleeding or discharge. Mucous membranes pink and moist. Tongue is midline. No uvula deviation. NECK: Trachea midline. No JVD. CARDIOVASCULAR: Regular rate and rhythm. No murmurs, S3, S4. RESPIRATORY: No accessory muscle use. Clear to auscultation. Breath sounds equal bilaterally. GASTROINTESTINAL: Abdomen soft, non-tender, nondistended. Hepatic and splenic margins not palpable. MUSCULOSKELETAL: Extremities without clubbing, cyanosis, or edema. No obvious deformities. Patient has pain with abduction of the left shoulder. No obvious deformity noted on exam. Patient able to abduct the shoulder. Internal and external rotation of the shoulder appears to be intact. 2+ pulses bilaterally. Neurovascular intact. NEUROLOGICAL: Awake and alert. No obvious cranial nerve deficits. Motor grossly within normal limits. Five out of 5 muscle strength in the arms and legs. Normal speech. PSYCHIATRIC: Appropriate mood and affect; insight and judgment normal. Data Data Last Documented VS Vital Signs Date Time Temp Pulse Resp B/P (MAP) Pulse Ox O2 Delivery O2 Flow Rate FiO2 04/02/17 16:40 98.1 58 14 140/61 (87) 98 Orders Orders Shoulder, Complete (>2vws) (04/02/17 ) Splint Or Brace Apply/Monitor (04/02/17 17:36) MDM Medical Decision Making Medical Screen Exam Complete: Yes Emergency Medical Condition: Yes Medical Record Reviewed: Yes Interpretation(s) xray negative for acute disease Differential Diagnosis Shoulder pain versus dislocation versus rotator cuff injury Narrative Course 20-year-old male that presents to the ED for evaluation of shoulder pain. Patient was properly examined and was found to have signs and symptoms of unclear etiology at this time. X-ray was ordered. X-ray showed negative for acute disease. Patient was reassured. At This time likely contusion to the left shoulder. Patient given a sling for comfort. Given prescription for diclofenac sodium and Lortab. Told to use only if needed. Follow with orthopedic doctor. See ED worsening symptoms. Diagnosis Primary Impression: Shoulder pain, left Qualified Codes: M25.512 - Pain in left shoulder Additional Impression: Rotator cuff injury Qualified Codes: S46.002A - Unspecified injury of muscle(s) and tendon(s) of the rotator cuff of left shoulder, initial encounter Patient Instructions: General Instructions Additional Instructions: Take medications as prescribed. Follow-up with PCP. See ED for any worsening symptoms. Do not drink or drive while taking pain medication. Apply ice or heat as needed for pain Med/Other Pt SpecificInfo: Prescription(s) given Scripts Hydrocodone/Acetaminophen (Hydrocodone-Acetamin 5-325 mg) 5 Mg-325 Mg Tablet 1 TAB PO Q6HR Y for PAIN SCALE 1 TO 10, #10 Prov: Colleen Ann MD 04/02/[address] (Diclofenac Sodium DR) 75 Mg Tabdr 75 MG PO BID Y for PAIN SCALE 1 TO 10, #20 TAB 0 Refills Prov: Colleen Ann MD 04/02/17 Disposition: 01 DISCHARGE HOME Condition: Theodore Moran Apr 02, 2017 17:09
[2017-04-02] MEDS ORDERED: DICL75TA PO (17:38)
[2017-04-02] MEDS ORDERED: HYDR-3516 PO (17:38)
--- NOTE | 2017-04-02 17:44 | RADRPT ---
EXAM DATE/TIME: 04/02/2017 17:19 [facility] COMPARISON: No previous studies available for comparison. INDICATIONS : Left shoulder pain after seizure 3 days ago. MEDICAL HISTORY : None. SURGICAL HISTORY : None. ENCOUNTER: Initial ACUITY: 3 days PAIN SCORE: 4/10 LOCATION: Left shoulder. FINDINGS: Multiple view examination of the left shoulder demonstrates no evidence of fracture or dislocation. The glenohumeral and acromioclavicular joints are maintained. There is normal range of motion betwee n internal and external rotation. Bony mineralization is normal. CONCLUSION: Unremarkable examination of the left shoulder. Steven Lester MD on April 02, 2017 at 17:42 Board Certified Radiologist. This report was verified electronically.
[2017-04-03] MEDS ORDERED: IRON18TA PO (10:34)
== END 2017-04-02 18:13 | disposition home or self-care (01) ==
LOC: PHEFT 16:27
DX: M25.512 Pain in left shoulder (principal); S46.002A Unspecified injury of muscle(s) and tendon(s) of the rotator cuff of left shoulder, initial encounter; R56.9 Unspecified convulsions; X58.XXXA Exposure to other specified factors, initial encounter
CPT/HCPCS: 73030; 99283